=== PATIENT | male | born 1960 | race Caucasian/White ===

== ENCOUNTER 2021-10-15 16:08 | Emergency (ER) | payer OTHER ==
[~2021-10-15] VITALS: Ht 180.3 cm; Wt 82.0 kg
[2021-10-15 16:14] VITALS: BP 162/98
== END 2021-10-15 20:38 | disposition home or self-care (01) ==
LOC: ER 16:08
DX: M79.645 Pain in left finger(s) (principal)
CPT/HCPCS: 29125; 73130; 99283